=== PATIENT | male | born 1990 | race Caucasian/White ===

== ENCOUNTER 2019-10-17 01:06 | Emergency (ER) | payer OTHER ==
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
[2019-10-17 01:22] VITALS: BP 138/72; PULSE 90; TEMP 97.6; BMI 22.9
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
[2019-10-17] MEDS ORDERED: DIPHTH,PERTUSS(ACELL),TET 0.5 ML DISP.SYRIN IM ONE ×2 (01:47→01:57)
[2019-10-17] MEDS ORDERED: ACETAMINOPHEN 500 MG TABLET (FP) PO ONE (01:47)
[2019-10-17] MEDS ORDERED: ACETAMINOPHEN 325 MG TABLET (FP) ONE (01:57)
== END 2019-10-17 03:31 | disposition home or self-care (01) ==
LOC: JER 01:06 → EDBD 01:06 → JER 03:31
PROC: 0HQ0XZZ Repair Scalp Skin, External Approach (ICD-10-PCS; principal; 2019-10-17)
PROC: 3E0234Z Introduction of Serum, Toxoid and Vaccine into Muscle, Percutaneous Approach (ICD-10-PCS; 2019-10-17)
DX: S01.81XA Laceration without foreign body of other part of head, initial encounter (principal)
CPT/HCPCS: 90715; 99283-25